=== PATIENT | male | born 1935 | race Caucasian/White ===

== ENCOUNTER → 2017-01-07 | Outpatient (CLI) | payer MEDICARE ==
[2017-01-07 11:47] LABS: HEMOGLOBIN 13.1 gm/dl (14.0-17.5); RED BLOOD COUNT 4.42 M/UL (4.20-5.50); WHITE BLOOD COUNT 7.8 K/UL (4.5-11.0)
== END ==
LOC: LAB 11:15
PROVIDERS: Internal Medicine Cardiovascular Disease
DX: Z00.00 Encounter for general adult medical examination without abnormal findings (principal); R09.89 Other specified symptoms and signs involving the circulatory and respiratory systems; I35.1 Nonrheumatic aortic (valve) insufficiency; R00.2 Palpitations; I25.5 Ischemic cardiomyopathy; R91.8 Other nonspecific abnormal finding of lung field
CPT/HCPCS: 36415; 71020; 85025

== ENCOUNTER → 2022-03-20 | Outpatient (CLI) | payer MEDICARE | LOC: ECHO 09:06 | DX: Z01.810 Encounter for preprocedural cardiovascular examination (principal); I25.10 Atherosclerotic heart disease of native coronary artery without angina pectoris; I62.03 Nontraumatic chronic subdural hemorrhage; I08.8 Other rheumatic multiple valve diseases | CPT/HCPCS: ECHO; 93306 ==